=== PATIENT | male | born 1955 | race Caucasian/White ===

== ENCOUNTER → 2021-09-03 | Outpatient (CLI) | payer MEDICARE ==
[~2021-09-03] MED LIST: ATENOLOL-CHLOR1 EACH PO; ATENOLOL50 MG PO; CALAN SR240 MG PO; FENOFIBRATE160 MG PO; GLYBURIDE-METF1 EAC1 PO; INVOKANA PO; LISINOPRIL40 MG PO; MELOXICAM15 MG PO; RESTASIS1 EACH OU; SPIRONOLACTONE25 MG PO
== END ==
LOC: SLEEP 19:56
PROVIDERS: ATTEND Otolaryngology
DX: G47.33 Obstructive sleep apnea (adult) (pediatric) (principal)
CPT/HCPCS: 95810

== ENCOUNTER → 2021-11-10 | Outpatient (CLI) | payer MEDICARE | LOC: SLEEP 19:55 | PROVIDERS: ATTEND Otolaryngology | DX: G47.33 Obstructive sleep apnea (adult) (pediatric) (principal) | CPT/HCPCS: 95811 ==